=== PATIENT | male | born 1950 | race Caucasian/White ===

== ENCOUNTER 2016-04-11 11:58 | Inpatient (IN) | payer OTHER, MEDICARE ==
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
--- NOTE | ~2016-04-11 | IDS ---
Interim Discharge Summary [facility] [address] [place]. [address] NAME: JOSIAH HAQ : 46 STATUS : ADM IN PAT#: [id number] AGE: 65 ADM/REG DATE : 04/11/16 MR#: [id number] REPORT SERV DATE: 04/16/16 DICTATED BY: AMBROSIO RICKETTS DATE: 04/15/16 REPORT STATUS : Draft TRANSCRIBED BY: MODWolf DATE: 04/15/16 ADMISSION DATE: 04/11/2016 DISCHARGE DATE: DIAGNOSES: 1. Acute on chronic worsening hypoxic respiratory failure. 2. History of MDS, status post bone marrow transplant and history of phmxo-btrvuk-ztyh disease. 3. Hyperkalemia with stage 4 chronic kidney disease. 4. Immunocompromised, on chronic steroid. 5. Acute influenza B, recent. 6. Acute strep infection. 7. History of deep vein thrombosis. ATTENDING: Critical Care, Dr. Stokes, Dr. Conte, and hospitalist Dr. Ricketts. CONSULTANTS: Nephrology, Dr. Amol Gamble and Dr. Lozano. HOSPITAL COURSE: This is a 65-year-old male with a past medical history of high-grade MDS being followed by Dr. Smith, booster pump oiler. Status post history of bone marrow transplant and gyhht-qkcpfq-kaee disease. Also, history of stage 4 CKD, being followed by Dr. Fausto Diaz. Currently, on a clinical trial with Veltassa for hyperkalemia. The patient was recently diagnosed with strep throat and acute influenza infection by his primary care physician, Hannah Conte nurse practitioner as an outpatient several days prior to coming in to [facility] and was prescribed oral antibiotics. The patient presented to [facility] ER with complaint of some generalized weakness and shortness of breath and had a low-grade temp at home of 100.6. He was seen by ER physician, Wade Herrera. While in the ER, the patient was stable. He does use occasional oxygen at home. He was found to have hyperkalemia with a potassium of 6.2, and the patient was admitted for treatment and also was found to have some acute on chronic kidney disease. His Nephrology group was consulted, and the patient was re-swabbed for strep and influenza, and both were positive, but found to have influenza B infection. Infectious Disease specialist was curb-sided concerning the patient, but not full consultation. The question was whether the patient still requires treatment considering his immunocompromised state and a recent history of acute influenza B that was still positive. It was recommended the patient does not require treatment at this time unless the patient develops fevers. Also, the patient is currently out of the range for treatment, but monitor. The patient initially was given some IV fluids upon admission for his acute on chronic kidney disease, approved by Nephrology. However, later throughout the hospital course, the patient's O2 requirement began to increase, although the patient stated he was feeling better. O2 requirement increased from 3 L to 8 L, and the patient was denying shortness of breath. His chest x-rays did not show any acute active infiltrates. He has remained afebrile throughout his hospital course. He was initiated on diuresing by Nephrology group with a good urine output. The patient also was transferred to ICU and seen by Dr. Stokes and Inés for hypoxic respiratory failure. The patient was placed on high- flow oxygen in ICU requiring 12 L of oxygen. The patient has remained alert and oriented x3, and seen by instructional support specialist while in ICU and Nephrology continued to follow. Interim Discharge Summary [address] [address] NAME: JOSIAH HAQ : 46 STATUS : ADM IN [facility]#: [id number] AGE: 65 ADM/REG DATE : 04/11/16 MR#: [id number] REPORT SERV DATE: 04/16/16 DICTATED BY: AMBROSIO RICKETTS DATE: 04/15/16 REPORT STATUS : Draft TRANSCRIBED BY: ANH DATE: 04/15/16 However, while in ICU, the patient threatened to leave AMA and stated he would stay if he was transferred back to a regular bed. Therefore, ICU physicians transferred the patient back to regular bed and now on 7 North cardiac telemetry, on 13 L of oxygen. The patient is hemodynamically stable. Still denying any shortness of breath. Dr. Smith, his booster pump oiler/oncologist has been consulted as of 04/14/2016 due to his history of graft- versus-host disease. Also, I have spoken with Dr. Smith today, who will come and assess his patient and also Pulmonary will be reconsulted to see the patient on the floor. The patient states that this has happened before in the past concerning his O2 requirement. The patient would benefit from a CAT scan of the chest. However, the question is if the patient would be stable enough to lie flat for a CAT scan while on 13 L of oxygen. Therefore, a CAT scan has not been ordered at this time. He has had a repeat chest x-ray and echocardiogram also has been ordered and awaiting Pulmonary consultation and Hematology/Oncology to re-evaluate the patient for snxlo-hazrjq-fzug disease. Mr. Haq would be followed by my colleague starting tomorrow 04/16/2016, who will attend to his care, and will be cared for by the Oncology/Hospitalist team as well. [facility]/MODL brosio Ricketts M.D. / [id number] CC: Ambrosio Ricketts M.D.
--- NOTE | ~2016-04-11 | IDS ---
Interim Discharge Summary [facility] [address] [address] NAME: JOSIAH MEJIA : 46 STATUS : ADM IN PAT#: [id number] AGE: 65 ADM/REG DATE : 04/11/16 MR#: [id number] REPORT SERV DATE: 04/15/16 DICTATED BY: AMBROSIO RICKETTS DATE: 04/15/16 REPORT STATUS : Draft TRANSCRIBED BY: MODL DATE: 04/15/16 ADMISSION DATE: 04/11/2016 DISCHARGE DATE: CONTINUATION: Also please note, the patient is on chronic Eliquis and states he has been compliant with his Eliquis at home and continues on Eliquis here while in the hospital since admission. Therefore, the likely of PE is low. [facility]/ANH brosio Ricketts M.D. / [id number] CC: Ambrosio Ricketts M.D.
--- NOTE | ~2016-04-11 | DS ---
Discharge Summary [facility] [address] [place]. [address] NAME: JOSIAH MEJIA : 46 STATUS : DIS IN PAT#: [id number] AGE: 65 ADM/REG DATE : 04/11/16 MR#: [id number] REPORT SERV DATE: 04/27/16 DICTATED BY: ADIN DENNIS DATE: 04/26/16 REPORT STATUS : Draft TRANSCRIBED BY: MODL DATE: 04/26/16 ADMISSION DATE: 04/11/2016 DISCHARGE DATE: 04/26/2016 CHIEF COMPLAINT ON ADMISSION: Generalized weakness and shortness of breath. DISCHARGING DIAGNOSES: 1. Influenza B. 2. Acute on chronic hypoxic respiratory failure. 3. Strep throat, status post treatment with amoxicillin. 4. Acute kidney injury with hyperkalemia on admission. 5. Nausea, vomiting, and diarrhea preceding admission, which has resolved. 6. History of myelodysplastic syndrome, status post allo bone marrow transplant. 7. History of rpmpq-xtazzv-ysij disease. 8. History of pulmonary embolus and deep vein thrombosis about two months ago, on Eliquis. 9. Positive respiratory cultures from bronchoscopy with Pseudomonas and muco purulence on examination. 10.Hypertension. 11.Chronic steroid use with hyperglycemia. 12.Chronic kidney disease stage 3. 13.Chronic anemia, follows with Oncology for this. HISTORY OF PRESENT ILLNESS: Please see full H and P by Dr. Marge Snow regarding initial presentation. HOSPITAL COURSE: Please see interim summaries by Dr. Snow and Dr. Vasquez regarding initial parts of hospitalization in addition to business travel consultant notes by Dr. Edward from Infectious Disease. In regard from my period taking care of the patient after Dr. Vasquez's interim summary covers up to 04/22/2016, the patient continued to improve. We were able to wean him down to his home 3 L of oxygen. He will get Aranesp for his MDS and anemia per Dr. Smith and he is down to 40 mg of Solu-Medrol daily. He will follow up with Dr. Smith. He will complete an additional three days of Cipro for his positive Pseudomonas on his BAL. This is per Dr. Edward. He will be discharged to home on his normal 3 to 4 L of oxygen. His creatinine is back down to his normal baseline. We will otherwise continue previous home medications. He will follow up with Dr. Smith early next week as previously scheduled. He has been stable on his previous dose of Eliquis without any further issues. He has required very few sliding scale insulin despite higher doses of steroids. PERTINENT IMAGING: Prior to discharge, he had a chest x-ray on 04/23/2016, which showed impression minimal atelectasis or infiltrate at the lung base. DISPOSITION: Will be home with previous home oxygen. FOLLOWUP: Will be with Dr. Smith as an outpatient. Time spent on this discharge including coordination of care and discussion with Infectious Discharge Summary [address] [address] NAME: JOSIAH MEJIA : 46 STATUS : DIS IN PAT#: [id number] AGE: 65 ADM/REG DATE : 04/11/16 MR#: [id number] REPORT SERV DATE: 04/27/16 DICTATED BY: ADIN DENNIS DATE: 04/26/16 REPORT STATUS : Draft TRANSCRIBED BY: MODWolf DATE: 04/26/16 Disease is greater than 30 minutes. DISCHARGE MEDICATIONS: Acyclovir 400 mg daily, Norvasc 10 mg daily, Eliquis 5 mg p.o. b.i.d., vitamin D, dapsone 100 mg in the morning, Colace 200 mg in the morning, Diflucan 100 mg daily, levothyroxine 112 mcg daily, Zyrtec 10 mg daily, methylprednisolone 40 mg daily, Singulair 10 mg daily, Lopressor 25 p.o. b.i.d., triamcinolone cream p.r.n., Flovent two puffs b.i.d., Atarax 25 mg p.o. b.i.d., sodium bicarbonate 1300 mg daily, Veltassa one packet daily, Compazine p.r.n., Ambien 10 mg p.r.n., Ultram 50 mg every six hours p.r.n., Cipro 500 mg p.o. b.i.d. for seven doses. YANELIS/ANH Adin Dennis MD / [id number] CC: Adin Dennis MD
--- NOTE | ~2016-04-11 | OP ---
Record Of Operation [facility] [address] [place]. [address] NAME: JOSIAH MEJIA : 46 STATUS : ADM IN PAT#: [id number] AGE: 65 ADM/REG DATE : 04/11/16 MR#: [id number] REPORT SERV DATE: 04/19/16 DICTATED BY: DONNELL MARTINEZ DATE: 04/19/16 REPORT STATUS : Draft TRANSCRIBED BY: MODL DATE: 04/19/16 DATE OF PROCEDURE: PROCEDURE PERFORMED: Fiberoptic bronchoscopy, bronchoscopy with bronchoalveolar lavage, and transbronchial lung biopsies on two separate lobes. DESCRIPTION OF PROCEDURE: After risks and benefits were explained, informed consent was obtained. The indication for preoperative diagnosis is pneumonitis and to rule out graft- versus-host disease in the setting of previous bone marrow transplant. The patient received anesthesia under care of Anesthesiology with placement of an LMA artificial airway. The patient tolerated the procedure well. Following insertion of the LMA, we advanced the bronchoscope beyond the vocal cords without difficulty, performed topical anesthesia throughout with lidocaine. The entire bronchial tree was inspected. He had thick copious clear secretions which were somewhat serosanguineous throughout even before the biopsies, but no endobronchial lesions. The first order segmental bronchi were clear in all lobes. We performed bronchoalveolar lavage in the right middle lobe and lingula by wedging the bronchoscope in the each lobe instilling saline aspirating into Lukens trap. We then performed seven transbronchial lung biopsies in the right middle lobe and right lower lobe under fluoroscopic guidance with good sampling and no immediate complications. Chest radiograph is pending though there was no obvious pneumothorax on fluoroscopy. IMPRESSION: Acute tracheobronchitis, pneumonitis, previous bone marrow transplant. TELMA/ANH Donnell Martinez M.D. / [id number] CC: Travis Vasquez M.D.
--- NOTE | ~2016-04-11 | IDS ---
Interim Discharge Summary [facility] [address] [place]. [address] NAME: JOSIAH MEJIA : 46 STATUS : ADM IN PAT#: [id number] AGE: 65 ADM/REG DATE : 04/11/16 MR#: [id number] REPORT SERV DATE: 04/22/16 DICTATED BY: DATE: REPORT STATUS : Draft TRANSCRIBED BY: MODL DATE: 04/22/16 ADMISSION DATE: 04/11/2016 DISCHARGE DATE: Covering interim dates of service 04/16/2016 through 04/22/2016. CONSULTANTS: Include Dr. Amol Gamble of Nephrology, Dr. Mala Loving of Pulmonology, Dr. Ayad Alexander of Oncology and Infectious Disease consultation is pending. CURRENT DIAGNOSES: 1. Acute kidney injury/hyperkalemia at admission - resolved. 2. Nausea, vomiting, and diarrhea preceding admission - resolved. 3. Influenza B. Out of the window for treatment with Tamiflu, so he actually was not treated. 4. Sinusitis - diagnosed prior to admission. Status post amoxicillin. 5. Acute strep - status post treatment with amoxicillin. 6. Acute on chronic hypoxemic respiratory failure - presently requiring Vapotherm with pressure 20, FiO2 80%. Suspect due to bilateral Pseudomonas pneumonia versus graft- versus-host disease exacerbation. 7. History of myelodysplastic syndrome - status post Rituxan. 8. History of lchwa-thmzoz-arcc disease. 9. History of pulmonary embolism/deep vein thrombosis diagnosed 2 months ago - on Eliquis. 10.Hypothyroidism. 11.Hypertension. 12.Generalized weakness. 13.Remote history of colon cancer. 14.Steroid induced hyperglycemia. INTERIM IMAGING AND DIAGNOSTICS: Include a portable chest x-ray 04/19/2016, following bronchoscopy shows persistent bibasilar airspace disease likely representing atelectasis. No pneumothorax or significant pleural effusions. PROCEDURES: Bronchoscopy on 04/19/2016 by Bird Martinez, showing multiple mucopurulent pockets. PERTINENT INTERIM LABS: Include bronchoalveolar lavage demonstrating 1500 colonies/mL of Pseudomonas. AFB smear negative with culture in progress for 6 weeks. Current creatinine value is 1.86. White blood cell count today is 25.8, up from 11.4 earlier in the week. Hemoglobin today 8.3, down from 9.6 earlier in the week. Blood glucose values ranging from 110-290 depending on patient's oral intake. Pathology from bronchoalveolar lavage 04/19/2016, negative for malignancy. Abundant mucopurulent debris. BRIEF HISTORY: For full details please see the previously dictated history of present illness by Dr. Marge Snow. This is a 65-year-old white male, with past medical Interim Discharge Summary [place] [address] [place]. [address] NAME: JOSIAH MEJIA : 46 STATUS : ADM IN PAT#: [id number] AGE: 65 ADM/REG DATE : 04/11/16 MR#: [id number] REPORT SERV DATE: 04/22/16 DICTATED BY: DATE: REPORT STATUS : Draft TRANSCRIBED BY: MODL DATE: 04/22/16 history of high-grade myelodysplastic syndrome, for which he has received Rituxan and bone- marrow transplant. The patient was diagnosed with influenza B, and strep throat prior to admission, treated with oral antibiotics but not Tamiflu at that point, because he was felt to be out of the window for treatment. On outpatient antibiotics, the patient developed severe diarrhea, inability to keep down food, fluids and medications, and presented to the emergency department on 04/11/2016 with acute on chronic renal failure and hyperkalemia. The patient was admitted to the Hospitalist Service. HOSPITAL COURSE: For full details, please see interim discharge summaries by Dr. Marge Snow dated 04/15/2016 and 04/16/2016. For the first week of the patient's hospitalization, he was managed for acute kidney injury and hyperkalemia with assistance from the Nephrology Service, and these issues resolved. He was re-swabbed for strep and influenza and was found to be positive for both. The patient was not treated for acute influenza B, because he was felt to be out of the window for treatment. He was placed on amoxicillin for strep and sinusitis. He completed 10 days of this antibiotic. Starting on 04/13/2016, patient's oxygen requirements began to increase, although there was no evidence of acute abnormality on chest imaging or clinically. He briefly required ICU hospitalization for hypoxemic respiratory failure, and was transferred back to the floor on 04/15/2016, on 13 L oxygen by nasal cannula. I assumed care of the patient on 04/16/2016. He had been seen by his oncologist, with a suspicion for exacerbation of eyidl-ekvzko-iidp disease. He had also been seen by Pulmonology Dr. Mala Loving. Recommendation was to increase his steroids. He was placed on Solu-Medrol 60 mg IV q.6 hours, with minimal improvement in his pulmonary status. He was requiring up to 80% of Vapotherm to maintain saturations greater than 90%. Given that he is chronically immunosuppressed with a history of high-grade myelodysplastic syndrome and prior bone marrow transplant, and he has a history of lhapq-ujrqvh-igrt disease, he was set up for a bronchoscopy which occurred on 04/19/2016, after his Eliquis could be held for appropriate duration. He was managed with an unfractionated heparin drip during the enrico-procedure period. He underwent an uneventful bronchoscopy by Dr. Bird Martinez on 04/19/2016, with subsequent BAL fluid culture growing 1500 colonies/mL of Pseudomonas which was loera sensitive. The patient was initiated on cefepime and ciprofloxacin on 04/21/2016, and ID consultation is pending to help determine the ideal in hospital and discharge antibiotic regimen and recommended duration. Oncology has begun tapering the patient's Solu-Medrol as of this morning, and he will now receive 60 mg IV q.12 hours. DISPOSITION: The patient will remain hospitalized until his oxygen requirements are decreased and he is felt appropriate for discharge to home, with home health and home physical therapy. Current pulmonary frailty has limited physical therapy efforts, but the Interim Discharge Summary [address] [place] [address] [facility] [place]. [address] NAME: JOSIAH MEJIA : 46 STATUS : ADM IN [facility]#: [id number] AGE: 65 ADM/REG DATE : 04/11/16 MR#: [id number] REPORT SERV DATE: 04/22/16 DICTATED BY: DATE: REPORT STATUS : Draft TRANSCRIBED BY: MODL DATE: 04/22/16 patient is making good effort to get up to the chair 3 times a day as tolerated, and oxygen will be weaned as tolerated. The patient had an up-trend in his white blood cell count today with some decline in hemoglobin and a repeat CBC is pending for the morning. Also, his blood pressure was elevated this morning in the systolic 150-160 range, and his home amlodipine was restarted. [facility]/ANH Travis Vasquez M.D. / [id number] CC: Argenis Kirk M.D. Bertrand Marquess Anz III, M.D.
--- NOTE | ~2016-04-11 | HP ---
History And Physical [place] [address] [facility] [place]. [address] NAME: JOSIAH MEJIA : 46 STATUS : ADM IN PAT#: [id number] AGE: 65 ADM/REG DATE : 04/11/16 MR#: [id number] REPORT SERV DATE: 04/11/16 DICTATED BY: AMBROSIO RICKETTS DATE: 04/11/16 REPORT STATUS : Draft TRANSCRIBED BY: MODWolf DATE: 04/11/16 DATE OF ADMISSION: 04/11/2016 CHIEF COMPLAINT: Generalized weakness and shortness of breath. HISTORY OF PRESENT ILLNESS: This is a 65-year-old male with a past medical history of high- grade MDS, for which he follows up with hematology/oncologist, Dr. Smith and is status post bone marrow transplant and a history of stage IV CKD, for which the patient follows up with Dr. Fausto Diaz, and is currently on a clinical trial with Veltassa for hyperkalemia. The patient was diagnosed with flu influenza and strep throat by a primary care physician, Hannah Conte, nurse practitioner, and was treated with oral antibiotics. The patient is currently not on Tamiflu, was told that he was out of the window for Tamiflu. He does have a dry cough, however, a couple of days after initiating the antibiotics, the patient developed severe diarrhea. He has no hematochezia, no melena, just only brown stools, low- grade fever of 100.6 while at home, and also the patient states due to his diarrhea, he has not been able to take some of his medications including his thyroid medication for the past week. He presented to [facility] ER, was seen in the ER by Dr. Wade Herrera, and was found to have hyperkalemia with acute on chronic renal failure with potassium of 6.2 and a creatinine has increased from a baseline of around 2.8 to 3.5, and hospitalist was called to admit the patient to the hospital. It was ordered in the ER for the patient to receive an amp of D50 and insulin and calcium gluconate by ER physician. The patient denies any abdominal discomfort, but does state he has some abdominal fullness. He denies any chest pain. REVIEW OF SYSTEMS: Please refer to HPI. 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 PAST SURGICAL HISTORY: Cholecystectomy, skin graft, colon resection, left elbow surgery, and fistula. FAMILY HISTORY: Father with CHF at 86 and mother at 90. SOCIAL HISTORY: Quit tobacco abuse approximately 15 years ago with a known [id number] history. No alcohol or illicit drugs. Lives at home with his . He states he moves slowly at home, but does not use any assistive devices and recently had a fall approximately two weeks ago. ALLERGIES: NO KNOWN ALLERGIES. HOME MEDICATIONS: Acyclovir 400 mg p.o. q.a.m., Norvasc 10 mg p.o. daily, Eliquis 5 mg p.o. b.i.d., Zithromax 250 mg p.o. q.morning, Ceftin 250 mg p.o. b.i.d. for seven days., Zyrte History And Physical [address] [address] NAME: JOSIAH MEJIA : 46 STATUS : ADM IN [facility]#: [id number] AGE: 65 ADM/REG DATE : 04/11/16 MR#: [id number] REPORT SERV DATE: 04/11/16 DICTATED BY: AMBROSIO RICKETTS DATE: 04/11/16 REPORT STATUS : Draft TRANSCRIBED BY: ANH DATE: 04/11/16 10 mg p.o. q.a.m., vitamin D, dapsone 100 mg p.o. q.a.m., Colace 200 mg p.o. q.a.m., fluconazole 100 mg p.o. q.a.m., fluticasone two puffs inhaled b.i.d., Atarax 25 mg p.o. b.i.d., levothyroxine 112 mcg p.o. daily, methylprednisolone 40 mg p.o. q.48 hours, metoprolol tartrate 25 mg p.o. b.i.d., Singulair 10 mg p.o. q.a.m., Compazine 10 mg p.o. q.6 hours p.r.n., sodium bicarb 1950 mg p.o. q.a.m., tramadol 50 mg p.o. q.6 hours p.r.n., triamcinolone topical cream at bedtime, Veltassa one pack p.o. q.afternoon, clinical trial medication, and Ambien 10 mg p.o. at bedtime. PHYSICAL EXAMINATION: VITAL SIGNS: Temp of 98.7, blood pressure 125/80 with a pulse of 80, respiratory rate of 18, and saturating 90% to 92% on room air. GENERAL: The patient is alert and oriented x3, in no distress. Obesity. HEENT: Pupils are equal, round, and reactive to light. Extraocular muscles are intact. Anicteric sclerae. CARDIOVASCULAR: S1 and S2. Regular rate and rhythm. No appreciated rubs or gallops. No JVD. RESPIRATORY: Clear to auscultation bilaterally. No wheezes or crackles. No signs of tachypnea. ABDOMEN: Positive bowel sounds with some abdominal fullness and some pitting edema, for which the patient states all this is chronic and not acute. EXTREMITIES: With 1+ pitting edema bilaterally. Warm lower extremities. NEURO: Cranial nerves 2 through 12 grossly intact. Moves all four extremities. No neuro focal deficits, but with generalized weakness. SKIN: With old scabs on the knees from a history of a recent fall. IMAGING: Chest x-ray with no acute infiltrate. LABORATORY DATA: A pH of 7.34, pCO2 of 36, pO2 of 55 with FiO2 of 21. Sodium 135, potassium 6.2, with a chloride of 101, bicarb of 23, BUN of 52, with a creatinine of 3.56 with a glucose of 98. T bili of 0.5, alkaline phosphatase of 110, ALT of 87, AST of 67. Troponin less than 0.02. BNP of 33.8, white count of 9.2 with a hemoglobin of 11.2, platelet count 188. UA with a specific gravity of 1.015, 30 of protein, negative blood, negative leukocyte esterase, negative nitrites, 1 white blood cell. IMAGING: EKG: Normal sinus rhythm. Q-waves in lead III. No ST elevation. No peaked T- waves. ASSESSMENT AND PLAN: 1. Hyperkalemia. 2. Acute on chronic kidney disease. 3. Diarrhea. 4. Uncontrolled hypothyroidism. 5. Recent right lower extremity deep venous thrombosis. 6. Recent influenza, not on Tamiflu. 7. Recent strep throat. 8. History of myelodysplastic syndrome. History And Physical [address] [place]. [address] NAME: JOSIAH MEJIA : 46 STATUS : ADM IN PAT#: [id number] AGE: 65 ADM/REG DATE : 04/11/16 MR#: [id number] REPORT SERV DATE: 04/11/16 DICTATED BY: AMBROSIO RICKETTS DATE: 04/11/16 REPORT STATUS : Draft TRANSCRIBED BY: ANH DATE: 04/11/16 ASSESSMENT AND PLAN: We will admit, also give IV fluids for rehydration as well as give a stat dose of Kayexalate now, and recheck electrolytes. Also, we will notify Dr. Fausto Diaz in service for the patient's admission with hyperkalemia and currently on a clinical trial drug. Also, we will re-swab for influenza. The patient's stool C difficile, so far, is negative per ER collection. Also, we will recheck the patient's TSH, the patient recently had a TSH in the chart noted to be on the 14th, found to be at 40. Also, we recommend to increase the levothyroxine dose, and we will admit to telemetry and closely monitor. MARCIN/ANH brosio Ricketts M.D. / [id number] CC: Argenis Escalona III, M.D. Nilesh C Patel, M.D.
--- NOTE | ~2016-04-11 | CN ---
Consultation Report [facility] [address] [place]. [address] NAME: JOSIAH MEJIA : 46 STATUS : ADM IN PAT#: [id number] AGE: 65 ADM/REG DATE : 04/11/16 MR#: [id number] REPORT SERV DATE: 04/22/16 DICTATED BY: JOE SÁNCHEZ DATE: 04/22/16 REPORT STATUS : Draft TRANSCRIBED BY: MODL DATE: 04/22/16 INFECTIOUS DISEASE CONSULT DATE OF CONSULTATION: REASON FOR CONSULT: Pseudomonas in BAL culture. 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 He is on chronic steroids along with chronic suppressive antibiotics with acyclovir, fluconazole, and dapsone. He uses oxygen at home, part of the time. About a week prior to this admission, he apparently had symptoms of shortness of breath, dry cough, maybe some congestion. He was seen I presume at the oncology office, and he might have been started on antibiotic. When I asked the patient, he could not really tell but there is a mention in the admission note about Ceftin. Also, he might have been at home on azithromycin. Prior to this admission, he had some "diarrhea" with brown stools and reduce oral intake, maybe nausea. To me, he reported no fever, no sore throat. No chest pain. Upon admission here on 04/11/2016, he had evidence of acute on chronic renal insufficiency with a creatinine of 3.5 with a baseline probably less than 3, potassium is high at 6.2, BUN 52. ABGs on room air showed a PaO2 of 55 and some mild transaminase elevation with normal bilirubin, a WBC of 9, hemoglobin 11, platelets 180. Influenza screen was positive. Strep screen by throat swab was positive. Urinalysis showed just proteins. Blood cultures were negative and stool culture unrevealing. He was started on azithromycin and amoxicillin from what I can tell. At some point, his steroids were increased, and he has been on high doses between the 04/16/[address] scan on 04/15/2016 showed some small areas of atelectasis and/or infiltrates mostly in the bases or lower lobes. A sputum culture was collected on 04/18/2016 and grew just normal fabien. Because he had persistent dyspnea on exertion and dry cough, he had a bronchoscopy on 04/19/2016. The report indicates copious thick clear and serosanguineous secretions. A BAL was done from the right middle lobe and the lingula that on pathology showed "mucopurulent debris." Transbronchial biopsy in the right middle lobe and right lower lobe showed bronchial wall inflammation and minimal parenchymal histologic changes. There was no granuloma, no malignancy. The BAL cell count showed 380 white blood cells, but 49,000 red blood cells. Lymphocytes are 82%. Gram stain had gram-positive rods, but culture grew 1500 colonies of Pseudomonas. AFB smear was negative. Antibiotics were altered with azithromycin being stopped on 04/21/2016 and the amoxicillin Consultation Report [place] [id number] [facility] [place]. [address] NAME: JOSIAH MEJIA : 46 STATUS : ADM IN [facility]#: [id number] AGE: 65 ADM/REG DATE : 04/11/16 MR#: [id number] REPORT SERV DATE: 04/22/16 DICTATED BY: JOE SÁNCHEZ DATE: 04/22/16 REPORT STATUS : Draft TRANSCRIBED BY: ANH DATE: 04/22/16 on the 04/19/2016. Yesterday, he was started on cefepime and Cipro. Echocardiogram was of a poor window and the last chest x-ray was done on 04/19/2016 that showed some bibasilar linear atelectasis. The patient states that he is less short of breath, and he is less weak but Dr. Vasquez, the hospitalist tells me that there is no improvement in his oxygen demands, and he does not seem any stronger. Also, his appetite is not good. He reports that he had no further diarrhea, no skin lesions beside a chronic skin tightness and scarring, no joint swelling. He has occasional sputum on expectoration that is dark, and he feels like he coughs more today than yesterday. He has been afebrile. Blood pressure has been high. Lab work showed some worsening of the white blood cell count from 5,000 to 11,000, now 25,000 with 67% segments, 17% bands, creatinine improved to 1.8. PAST MEDICAL HISTORY: 1. As I mentioned above. From the chart, I understand he received Rituxan in the past. He is on steroids at home. He had a presence of BK virus, I am not sure it was blood or urine in 2013. 2. Chronic kidney disease, and he has actually dialyzed for a year until 2015. He is on a trial of medication for hyperkalemia named Veltassa. 3. He had a history of colon cancer, requiring surgery. 4. History of hypertension, right leg DVT, hypothyroidism, left elbow surgery, cholecystectomy. 5. He had extensive knowles about 60% of his body and a lot of skin grafts. 6. He has a history of varicella. No history of TB or TB contacts. SOCIAL HISTORY: He is , a lot of people who live in his house including children. He has no animals. He has not traveled. [place]. He was in [place] for , quit smoking years ago. MEDICATIONS: On admission include acyclovir, azithromycin, cefuroxime, dapsone, fluconazole, methylprednisolone 40 mg every other day. Other medications included amlodipine, Eliquis, Zyrtec, vitamin D3, docusate, Flovent, Atarax, levothyroxine, metoprolol, Singulair, Compazine as needed, sodium bicarbonate, triamcinolone cream, Veltassa, and Ambien for sleep. PHYSICAL EXAMINATION: GENERAL: On exam, he is awake. He has brown facies. He has a few teeth on the lower jaw. HEENT: I do not see oral ulcers. LUNGS: With coarse decreased sounds throughout. HEART: Regular rhythm. Distant sounds. ABDOMEN: With tight skin, nontender to palpation. EXTREMITIES: Arms with tight skin. No open wounds. SKIN: Legs and feet without open wounds. Consultation Report [address] [place]. [address] NAME: JOSIAH MEJIA : 46 STATUS : ADM IN [facility]#: [id number] AGE: 65 ADM/REG DATE : 04/11/16 MR#: [id number] REPORT SERV DATE: 04/22/16 DICTATED BY: JOE SÁNCHEZ DATE: 04/22/16 REPORT STATUS : Draft TRANSCRIBED BY: ANH DATE: 04/22/16 ASSESSMENT AND PLAN: 1. Positive BAL culture for Pseudomonas in a patient with respiratory failure, who is immunocompromised. 2. Myelodysplastic syndrome status post stem cell transplant remotely, with GVHD. He is on chronic steroids. He received rituximab in the past. 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 According to the chart, he was on suppressive acyclovir, dapsone, and fluconazole. The patient cannot remember all the medications he takes. I saw Ceftin and azithromycin on the medications and admission list. 3. History of chronic kidney disease, hypothyroidism. 4. He had a positive influenza screen in outpatient and again on admission here. 5. He had a positive throat swab screen for Strep but he received amoxicillin and azithromycin here for at least a week plus it sounds like he received Ceftin as outpatient. The significance of the Pseudomonas is quite unclear since the colony count is quite low, the white blood cell count from BAL is quite low as well. The patient states he feels better although his doctor tells me his oxygen requirements have not decreased, and he does not look better. He was started on cefepime and Cipro for the Pseudomonas but I do not think we need both antibiotics, I am going to stop the Cipro. Consider adding Tamiflu since he is immunocompromised and there is some risk of persistent shedding of virus. I would repeat a CT of the chest if he does not show signs of improvement in a couple of days. We will check urine Pneumococcal antigen, urine Legionella antigen, and a BAL for a viral respiratory panel. I discussed with Dr. Vasquez and the patient. PC/MODL Joe Sánchez M.D. / [id number] CC: Travis Vasquez M.D.
[~2016-04-11 11:58] MED LIST: AMB10 PO; ANTIBIOTIC FOR SINUS PO; B12100T PO; CIP2 PO; CLARIT10 PO; COMP10B PO; DAPSONE 100 MG100 MG PO; FLUCON2 PO; K500 PO; KIONEX PO; LEVAQUIN5T PO; LEVOTHYROXIN112 MCG PO; MAGOX4 PO; MEDROL4 PO; MUCINEX600 MG PO; NORV10 PO; OXYCOD PO; PRILO PO; PRIN10 PO; PRIN20 PO; REFRESH TEAR0.5 % OP; RX CREAM TOP; SODBICAR10 PO; SYN1 PO; SYN112 PO; TOPXL25 PO; TOPXL50 PO; TRIAMCINOLON0.5 % EX; TRIAMCINOLONE C80 GM TOP; TYLENOL PO; ULTRAM50 PO; ZOFRAN8 PO; ZOVI800 PO; ZOVIRAX400 MG PO; [UNRECOGNIZED DRUG - REMARK] SC
[2016-04-11 12:16] LABS: ER CBC TAT 0 Hrs 09 Mins; HEMATOCRIT 35.9 % (40.0-51.0); HEMOGLOBIN 11.2 g/dL (13.6-17.8); MANUAL DIFF YES %; MEAN CORPUS HGB CONC 31.2 g/dL (32.0-36.0); MEAN CORPUSCULAR HEMOGLOB 29.9 pg (26.0-34.0); MEAN CORPUSCULAR VOLUME 95.7 fL (80-100); MEAN PLATELET VOLUME 9.6 fL (9.2-13.0); PLATELET COUNT 188 10/3/uL (150-400); RBC DISTRIBUTION WIDTH 15.8 % (12.0-16.0); RED CELL COUNT 3.75 10/6/uL (4.7-6.1); WHITE BLOOD CELLS 9.2 10/3/uL (4.5-10.5)
[2016-04-11 12:20] LABS: ALLENS TEST Pos; HCO3 (ACTUAL BICARBONATE) 19.1 MEQ/L (23-27); HEMOBLOGIN CONTENT 11.1 G/DL (14-18); INSTRUMENT SERIAL # 8087; METHEMOGLOBIN 0.3 % (0-3); O2 CONTENT 13.2 VOL% (18-24); PCO2 (CO2 TENSION) 36 MMHG (35-45); PO2 (O2 TENSION) 55 MMHG (79-93); SAMPLE Arterial; pH 7.34 (7.37-7.43)
[2016-04-11 12:35] LABS: ALKALINE PHOSPHATASE 110 U/L (45-117); CALCIUM, SERUM 8.7 MG/DL (8.5-10.4); CHLORIDE, SERUM 101 MMOL/L (96-112); CO2 (CARBON DIOXIDE) 23 MMOL/L (24-34); GLUCOSE, SERUM 98 MG/DL (60-99); SGOT(AST) 67 U/L (5-40); SGPT(ALT) 87 U/L (5-65); SODIUM, SERUM 135 MMOL/L (135-148); TOTAL BILIRUBIN 0.5 MG/DL (0-1.2); TOTAL PROTEIN 6.1 G/DL (6.0-8.5); TROPONIN I <0.02 NG/ML (<0.05)
[2016-04-11 12:36] LABS: BUN (BLOOD UREA NITROGEN) 52 MG/DL (6-23); CREATININE 3.56 MG/DL (0.70-1.30); GFR AFRICAN AMERICAN 19 ML/MIN (>=60); GFR NON AFRICAN AMERICAN 17 ML/MIN (>=60); GLOBULIN 3.1 G/DL (2.5-4.1)
[2016-04-11 12:37] LABS: POTASSIUM, SERUM 6.2 MMOL/L (3.5-5.3)
[2016-04-11 12:58] LABS: ER DIFF TAT 0 Hrs 51 Mins; SEGMENTED NEUTROPHIL (0) 60 %; TOTAL NUCLEATED CELLS 100
[2016-04-11 12:59] LABS: BAND NEUTROPHILS 12 %; LYMPHOCYTES 22 %; LYMPHOCYTES ABSOLUTE (CALC) 2.02 10/3/uL (0.67-4.30); MONOCYTES 6 %; MONOCYTES ABSOLUTE (CALC) 0.55 10/3/uL (0.21-1.20); NEUTROPHILS ABSOLUTE (CALC) 6.62 10/3/uL (2.02-8.40); PLATELET ESTIMATE ADQ (ADEQUATE); RBC MORPHOLOGY NORM (NORMAL)
[2016-04-11] MEDS ORDERED: ELIQUIS 5 MG TAB5 MG PO (14:01)
[2016-04-11] MEDS ORDERED: DSS PO (14:01)
[2016-04-11] MEDS ORDERED: FLOVENT220 INH (14:01)
[2016-04-11] MEDS ORDERED: SYN112 PO (14:02)
[2016-04-11] MEDS ORDERED: SINGULAIR1 PO (14:02)
[2016-04-11] MEDS ORDERED: TRIAMCINOLONE C80 GM TOP (14:04)
[2016-04-11] MEDS ORDERED: PATIROMER PO (14:05)
[2016-04-11] MEDS ORDERED: LOP25 PO (14:05)
[2016-04-11] MEDS ORDERED: SODBICAR10 PO (14:05)
[2016-04-11] MEDS ORDERED: ZYRTEC ALLGY10 MG PO (14:06)
[2016-04-11] MEDS ORDERED: NORV10 PO (14:06)
[2016-04-11] MEDS ORDERED: ULTRAM50 PO (14:07)
[2016-04-11] MEDS ORDERED: MEDROL8 MG PO (14:07)
[2016-04-11] MEDS ORDERED: AMB10 PO (14:07)
[2016-04-11] MEDS ORDERED: COMP10B PO (14:07)
[2016-04-11] MEDS ORDERED: VITAMIN D31000 UNIT PO (14:08)
[2016-04-11] MEDS ORDERED: FLUCON1 PO (14:08)
[2016-04-11] MEDS ORDERED: AT25 PO (14:08)
[2016-04-11] MEDS ORDERED: ZOVIRAX400 MG PO (14:09)
[2016-04-11] MEDS ORDERED: DAPSONE 100 MG100 MG PO (14:09)
[2016-04-11] MEDS ORDERED: ZITH250 PO (14:09)
[2016-04-11] MEDS ORDERED: CEFT2 PO (14:17)
[2016-04-11 14:46] LABS: ASCORBIC ACID (UR NOT ORDER) NEG (NEG); BILIRUBIN, URINE NEGATIVE (NEG); ER URINALYSIS TAT 0 Hrs 12 Mins; KETONE, URINE NEGATIVE (NEG); LEUKOCYTE ESTERASE(NOT OR NEG (NEG); NITRITE (URINE) NEG (NEG); WBC (NOT ORDERED) (RFLEX) 1 (0-5)
[2016-04-11 18:19] LABS: BUN (BLOOD UREA NITROGEN) 51 MG/DL (6-23); CALCIUM, SERUM 9.7 MG/DL (8.5-10.4); CHLORIDE, SERUM 102 MMOL/L (96-112); CO2 (CARBON DIOXIDE) 19 MMOL/L (24-34); CREATININE 3.42 MG/DL (0.70-1.30); GFR AFRICAN AMERICAN 20 ML/MIN (>=60); GFR NON AFRICAN AMERICAN 18 ML/MIN (>=60); GLUCOSE, SERUM 95 MG/DL (60-99); POTASSIUM, SERUM 5.9 MMOL/L (3.5-5.3); SODIUM, SERUM 136 MMOL/L (135-148)
[2016-04-11 21:12] LABS: INFLUENZA A SCREEN NEGATIVE (NEGATIVE)
[2016-04-11 21:14] LABS: INFLUENZA B SCREEN POSITIVE (NEGATIVE)
[2016-04-11 21:42] LABS: BUN (BLOOD UREA NITROGEN) 51 MG/DL (6-23); CALCIUM, SERUM 9.1 MG/DL (8.5-10.4); CHLORIDE, SERUM 101 MMOL/L (96-112); CREATININE 3.53 MG/DL (0.70-1.30); GFR AFRICAN AMERICAN 20 ML/MIN (>=60); GFR NON AFRICAN AMERICAN 17 ML/MIN (>=60); GLUCOSE, SERUM 111 MG/DL (60-99); POTASSIUM, SERUM 5.1 MMOL/L (3.5-5.3); SODIUM, SERUM 138 MMOL/L (135-148)
[2016-04-11 21:43] LABS: CO2 (CARBON DIOXIDE) 23 MMOL/L (24-34)
[2016-04-12 01:12] LABS: BASOPHILS 0.5 %; BASOPHILS ABSOLUTE 0.05 10/3/uL (0.0-0.16); EOSINOPHILS 0 %; HEMATOCRIT 36.4 % (40.0-51.0); HEMOGLOBIN 11.5 g/dL (13.6-17.8); IMMATURE GRANULOCYTES 0.6 %; IMMATURE GRANULOCYTES ABSOLUTE 0.06 10/3/uL (0.0-0.11); LYMPHOCYTES 30.1 %; LYMPHOCYTES ABSOLUTE 3.18 10/3/uL (0.67-4.30); MEAN CORPUS HGB CONC 31.6 g/dL (32.0-36.0); MEAN CORPUSCULAR HEMOGLOB 29.8 pg (26.0-34.0); MEAN CORPUSCULAR VOLUME 94.3 fL (80-100); MEAN PLATELET VOLUME 9.3 fL (9.2-13.0); MONOCYTES 8.9 %; MONOCYTES ABSOLUTE 0.94 10/3/uL (0.21-1.20); NEUTROPHILS 59.9 %; NEUTROPHILS ABSOLUTE 6.34 10/3/uL (2.02-8.40); PLATELET COUNT 185 10/3/uL (150-400); RBC DISTRIBUTION WIDTH 15.2 % (12.0-16.0); RED CELL COUNT 3.86 10/6/uL (4.7-6.1); WHITE BLOOD CELLS 10.6 10/3/uL (4.5-10.5)
[2016-04-12 01:14] LABS: MANUAL DIFF NO %
[2016-04-12 01:33] LABS: BUN (BLOOD UREA NITROGEN) 48 MG/DL (6-23); CALCIUM, SERUM 8.5 MG/DL (8.5-10.4); CHLORIDE, SERUM 103 MMOL/L (96-112); CO2 (CARBON DIOXIDE) 23 MMOL/L (24-34); CREATININE 3.15 MG/DL (0.70-1.30); GFR AFRICAN AMERICAN 22 ML/MIN (>=60); GFR NON AFRICAN AMERICAN 19 ML/MIN (>=60); GLUCOSE, SERUM 93 MG/DL (60-99); POTASSIUM, SERUM 4.5 MMOL/L (3.5-5.3); SODIUM, SERUM 138 MMOL/L (135-148)
[2016-04-13 06:51] LABS: ALBUMIN 2.5 G/DL (3.5-5.0); BUN (BLOOD UREA NITROGEN) 31 MG/DL (6-23); CALCIUM, SERUM 7.8 MG/DL (8.5-10.4); CHLORIDE, SERUM 105 MMOL/L (96-112); CO2 (CARBON DIOXIDE) 20 MMOL/L (24-34); CREATININE 2.43 MG/DL (0.70-1.30); GFR AFRICAN AMERICAN 31 ML/MIN (>=60); GFR NON AFRICAN AMERICAN 27 ML/MIN (>=60); GLUCOSE, SERUM 66 MG/DL (60-99); PHOSPHORUS, SERUM 2.6 MG/DL (2.5-4.5); POTASSIUM, SERUM 4.1 MMOL/L (3.5-5.3); SODIUM, SERUM 138 MMOL/L (135-148)
[2016-04-13 07:49] LABS: BASOPHILS 0.2 %; BASOPHILS ABSOLUTE 0.01 10/3/uL (0.0-0.16); EOSINOPHILS 0 %; HEMOGLOBIN 9.9 g/dL (13.6-17.8); IMMATURE GRANULOCYTES 0.2 %; IMMATURE GRANULOCYTES ABSOLUTE 0.01 10/3/uL (0.0-0.11); LYMPHOCYTES 43.7 %; LYMPHOCYTES ABSOLUTE 2.65 10/3/uL (0.67-4.30); MEAN CORPUS HGB CONC 31.6 g/dL (32.0-36.0); MEAN CORPUSCULAR HEMOGLOB 29.1 pg (26.0-34.0); MEAN CORPUSCULAR VOLUME 92.1 fL (80-100); MEAN PLATELET VOLUME 9.6 fL (9.2-13.0); MONOCYTES 6.8 %; MONOCYTES ABSOLUTE 0.41 10/3/uL (0.21-1.20); NEUTROPHILS 49.1 %; NEUTROPHILS ABSOLUTE 2.99 10/3/uL (2.02-8.40); NUCLEATED RED BLOOD CELLS 0.4 /100WBC (0-0); PLATELET COUNT 178 10/3/uL (150-400); RBC DISTRIBUTION WIDTH 15.9 % (12.0-16.0)
[2016-04-13 07:50] LABS: HEMATOCRIT 31.3 % (40.0-51.0); MANUAL DIFF NO %; WHITE BLOOD CELLS 6.1 10/3/uL (4.5-10.5)
[2016-04-13 16:45] LABS: ALLENS TEST Pos; BE (BASE EXCESS) -2.4 MEQ/L (0 +/- 2.5); CARBOXYHEMOGLOBIN 0.3 % (0-3); HCO3 (ACTUAL BICARBONATE) 21.5 MEQ/L (23-27); HEMOBLOGIN CONTENT 10.8 G/DL (14-18); INSTRUMENT SERIAL # 8083; METHEMOGLOBIN 1.4 % (0-3); O2 CONTENT 13.2 VOL% (18-24); PCO2 (CO2 TENSION) 34 MMHG (35-45); PO2 (O2 TENSION) 60 MMHG (79-93); SAMPLE Arterial; pH 7.42 (7.37-7.43)
[2016-04-14 04:28] LABS: INSTRUMENT SERIAL # 8083; PCO2 (CO2 TENSION) 38 MMHG (35-45); PO2 (O2 TENSION) 81 MMHG (79-93); pH 7.37 (7.37-7.43)
[2016-04-14 04:29] LABS: ALLENS TEST Pos; BE (BASE EXCESS) -3.1 MEQ/L (0 +/- 2.5); CARBOXYHEMOGLOBIN 0.3 % (0-3); DEVICE HFNC; HCO3 (ACTUAL BICARBONATE) 21.7 MEQ/L (23-27); HEMOBLOGIN CONTENT 11.4 G/DL (14-18); METHEMOGLOBIN 0.5 % (0-3); O2 CONTENT 14.9 VOL% (18-24); OPERATOR ID 17370; SAMPLE Arterial
[2016-04-14 04:46] LABS: HEMOGLOBIN 11.2 g/dL (13.6-17.8); MEAN CORPUS HGB CONC 32.3 g/dL (32.0-36.0); MEAN CORPUSCULAR HEMOGLOB 30.1 pg (26.0-34.0); MEAN CORPUSCULAR VOLUME 93.3 fL (80-100); MEAN PLATELET VOLUME 9.6 fL (9.2-13.0); PLATELET COUNT 180 10/3/uL (150-400); RBC DISTRIBUTION WIDTH 15.2 % (12.0-16.0); RED CELL COUNT 3.72 10/6/uL (4.7-6.1)
[2016-04-14 04:47] LABS: HEMATOCRIT 34.7 % (40.0-51.0); MANUAL DIFF YES %
[2016-04-14 04:55] LABS: ALBUMIN 2.6 G/DL (3.5-5.0); BUN (BLOOD UREA NITROGEN) 33 MG/DL (6-23); CALCIUM, SERUM 8.2 MG/DL (8.5-10.4); CHLORIDE, SERUM 101 MMOL/L (96-112); CO2 (CARBON DIOXIDE) 23 MMOL/L (24-34); CREATININE 2.77 MG/DL (0.70-1.30); GFR AFRICAN AMERICAN 26 ML/MIN (>=60); GFR NON AFRICAN AMERICAN 23 ML/MIN (>=60); GLUCOSE, SERUM 178 MG/DL (60-99); PHOSPHORUS, SERUM 3.5 MG/DL (2.5-4.5); POTASSIUM, SERUM 4.2 MMOL/L (3.5-5.3); SODIUM, SERUM 138 MMOL/L (135-148)
[2016-04-14 06:54] LABS: BAND NEUTROPHILS 9 %; LYMPHOCYTES 16 %; LYMPHOCYTES ABSOLUTE (CALC) 0.96 10/3/uL (0.67-4.30); MONOCYTES 5 %; NEUTROPHILS ABSOLUTE (CALC) 4.74 10/3/uL (2.02-8.40); PLATELET ESTIMATE ADQ (ADEQUATE); SEGMENTED NEUTROPHIL (0) 70 %; TEARDROP SHAPED RBCS OCC (0-2/OIF); TOTAL NUCLEATED CELLS 100
[2016-04-14 06:55] LABS: BURR CELLS 1+ (3-10/OIF) (0-2/OIF); HELMET CELLS OCC (0-2/OIF)
[2016-04-15 04:39] LABS: BASOPHILS 0.2 %; BASOPHILS ABSOLUTE 0.01 10/3/uL (0.0-0.16); EOSINOPHILS 0 %; HEMATOCRIT 34.1 % (40.0-51.0); HEMOGLOBIN 10.5 g/dL (13.6-17.8); IMMATURE GRANULOCYTES 0.6 %; IMMATURE GRANULOCYTES ABSOLUTE 0.04 10/3/uL (0.0-0.11); LYMPHOCYTES 21.6 %; LYMPHOCYTES ABSOLUTE 1.37 10/3/uL (0.67-4.30); MEAN CORPUS HGB CONC 30.8 g/dL (32.0-36.0); MEAN CORPUSCULAR HEMOGLOB 28.2 pg (26.0-34.0); MEAN CORPUSCULAR VOLUME 91.4 fL (80-100); MEAN PLATELET VOLUME 9.6 fL (9.2-13.0); MONOCYTES 5.4 %; MONOCYTES ABSOLUTE 0.34 10/3/uL (0.21-1.20); NEUTROPHILS 72.2 %; NEUTROPHILS ABSOLUTE 4.59 10/3/uL (2.02-8.40); PLATELET COUNT 218 10/3/uL (150-400); RBC DISTRIBUTION WIDTH 15.6 % (12.0-16.0); RED CELL COUNT 3.73 10/6/uL (4.7-6.1); WHITE BLOOD CELLS 6.4 10/3/uL (4.5-10.5)
[2016-04-15 04:40] LABS: MANUAL DIFF NO %
[2016-04-15 04:54] LABS: CHLORIDE, SERUM 101 MMOL/L (96-112); CO2 (CARBON DIOXIDE) 26 MMOL/L (24-34); CREATININE 2.71 MG/DL (0.70-1.30); GFR AFRICAN AMERICAN 27 ML/MIN (>=60); GFR NON AFRICAN AMERICAN 23 ML/MIN (>=60); PHOSPHORUS, SERUM 3.6 MG/DL (2.5-4.5); POTASSIUM, SERUM 4.2 MMOL/L (3.5-5.3); SODIUM, SERUM 138 MMOL/L (135-148)
[2016-04-15 04:57] LABS: BUN (BLOOD UREA NITROGEN) 39 MG/DL (6-23); GLUCOSE, SERUM 93 MG/DL (60-99)
[2016-04-16 04:06] LABS: HEMOGLOBIN 10.7 g/dL (13.6-17.8); MEAN CORPUS HGB CONC 31.5 g/dL (32.0-36.0); MEAN CORPUSCULAR HEMOGLOB 29.2 pg (26.0-34.0); MEAN CORPUSCULAR VOLUME 92.9 fL (80-100); MEAN PLATELET VOLUME 10.3 fL (9.2-13.0); PLATELET COUNT 244 10/3/uL (150-400); RBC DISTRIBUTION WIDTH 15.4 % (12.0-16.0); RED CELL COUNT 3.66 10/6/uL (4.7-6.1); WHITE BLOOD CELLS 5.1 10/3/uL (4.5-10.5)
[2016-04-16 04:07] LABS: MANUAL DIFF YES %
[2016-04-16 04:21] LABS: ALBUMIN 2.6 G/DL (3.5-5.0); BUN (BLOOD UREA NITROGEN) 38 MG/DL (6-23); CHLORIDE, SERUM 100 MMOL/L (96-112); CO2 (CARBON DIOXIDE) 26 MMOL/L (24-34); CREATININE 2.55 MG/DL (0.70-1.30); GFR AFRICAN AMERICAN 29 ML/MIN (>=60); GFR NON AFRICAN AMERICAN 25 ML/MIN (>=60); SODIUM, SERUM 138 MMOL/L (135-148)
[2016-04-16 04:32] LABS: BAND NEUTROPHILS 2 %; IMMATURE GRANS ABSOLUTE (CALC) 0.05 10/3/uL (0.0-0.11); LYMPHOCYTES 21 %; LYMPHOCYTES ABSOLUTE (CALC) 1.07 10/3/uL (0.67-4.30); METAMYELOCYTES 1 %; MONOCYTES 9 %; MONOCYTES ABSOLUTE (CALC) 0.46 10/3/uL (0.21-1.20); NEUTROPHILS ABSOLUTE (CALC) 3.52 10/3/uL (2.02-8.40); PLATELET ESTIMATE ADQ (ADEQUATE); SEGMENTED NEUTROPHIL (0) 67 %; TEARDROP SHAPED RBCS FEW (3-10/OIF); TOTAL NUCLEATED CELLS 100
[2016-04-16 04:32] LABS: GLUCOSE, SERUM 176 MG/DL (60-99); PHOSPHORUS, SERUM 2.5 MG/DL (2.5-4.5)
[2016-04-16 05:10] LABS: SED RATE 77 MM/HR (0-15)
[2016-04-17 06:22] LABS: BASOPHILS 0.2 %; BASOPHILS ABSOLUTE 0.01 10/3/uL (0.0-0.16); EOSINOPHILS 0 %; HEMATOCRIT 30.9 % (40.0-51.0); HEMOGLOBIN 9.7 g/dL (13.6-17.8); IMMATURE GRANULOCYTES ABSOLUTE 0.04 10/3/uL (0.0-0.11); LYMPHOCYTES 20.9 %; LYMPHOCYTES ABSOLUTE 0.87 10/3/uL (0.67-4.30); MANUAL DIFF NO %; MEAN CORPUS HGB CONC 31.4 g/dL (32.0-36.0); MEAN CORPUSCULAR HEMOGLOB 29.1 pg (26.0-34.0); MEAN CORPUSCULAR VOLUME 92.8 fL (80-100); MEAN PLATELET VOLUME 10.1 fL (9.2-13.0); MONOCYTES ABSOLUTE 0.25 10/3/uL (0.21-1.20); NEUTROPHILS 71.9 %; NEUTROPHILS ABSOLUTE 2.99 10/3/uL (2.02-8.40); PLATELET COUNT 257 10/3/uL (150-400); RBC DISTRIBUTION WIDTH 15.3 % (12.0-16.0); RED CELL COUNT 3.33 10/6/uL (4.7-6.1); WHITE BLOOD CELLS 4.2 10/3/uL (4.5-10.5)
[2016-04-17 06:55] LABS: A/G RATIO 0.6 (0.7-1.9); ALBUMIN 2.3 G/DL (3.5-5.0); ALKALINE PHOSPHATASE 109 U/L (45-117); CHLORIDE, SERUM 100 MMOL/L (96-112); CREATININE 2.41 MG/DL (0.70-1.30); GFR AFRICAN AMERICAN 31 ML/MIN (>=60); GFR NON AFRICAN AMERICAN 27 ML/MIN (>=60); GLUCOSE, SERUM 163 MG/DL (60-99); POTASSIUM, SERUM 4.4 MMOL/L (3.5-5.3); SGOT(AST) 69 U/L (5-40); SGPT(ALT) 78 U/L (5-65); SODIUM, SERUM 136 MMOL/L (135-148); TOTAL BILIRUBIN 0.5 MG/DL (0-1.2); TOTAL PROTEIN 6.1 G/DL (6.0-8.5)
[2016-04-17 07:00] LABS: BUN (BLOOD UREA NITROGEN) 43 MG/DL (6-23); CO2 (CARBON DIOXIDE) 21 MMOL/L (24-34); GLOBULIN 3.8 G/DL (2.5-4.1)
[2016-04-18 10:53] LABS: ALBUMIN 2.4 G/DL (3.5-5.0); BUN (BLOOD UREA NITROGEN) 47 MG/DL (6-23); CHLORIDE, SERUM 97 MMOL/L (96-112); CO2 (CARBON DIOXIDE) 23 MMOL/L (24-34); CREATININE 2.35 MG/DL (0.70-1.30); GFR AFRICAN AMERICAN 32 ML/MIN (>=60); GFR NON AFRICAN AMERICAN 28 ML/MIN (>=60); GLUCOSE, SERUM 166 MG/DL (60-99); POTASSIUM, SERUM 3.5 MMOL/L (3.5-5.3); SODIUM, SERUM 133 MMOL/L (135-148)
[2016-04-19 04:16] LABS: PARTIAL THROMBO TIME 35.1 SEC (22.5-37.2); PROTIME (NOT ORD) 13.4 SEC (12.0-14.5)
[2016-04-19 04:19] LABS: HEMATOCRIT 29.9 % (40.0-51.0); HEMOGLOBIN 9.6 g/dL (13.6-17.8); MANUAL DIFF YES %; MEAN CORPUS HGB CONC 32.1 g/dL (32.0-36.0); MEAN CORPUSCULAR HEMOGLOB 28.9 pg (26.0-34.0); MEAN CORPUSCULAR VOLUME 90.1 fL (80-100); MEAN PLATELET VOLUME 10.2 fL (9.2-13.0); NUCLEATED RED BLOOD CELLS 0.8 /100WBC (0-0); PLATELET COUNT 327 10/3/uL (150-400); RBC DISTRIBUTION WIDTH 14.9 % (12.0-16.0); RED CELL COUNT 3.32 10/6/uL (4.7-6.1); WHITE BLOOD CELLS 5.5 10/3/uL (4.5-10.5)
[2016-04-19 05:54] LABS: BAND NEUTROPHILS 3 %; ELLIPTOCYTES 1+ (3-10/OIF) (0-2/OIF); HELMET CELLS OCC (0-2/OIF); IMMATURE GRANS ABSOLUTE (CALC) 0.06 10/3/uL (0.0-0.11); LYMPHOCYTES 24 %; LYMPHOCYTES ABSOLUTE (CALC) 1.32 10/3/uL (0.67-4.30); METAMYELOCYTES 1 %; MONOCYTES 11 %; MONOCYTES ABSOLUTE (CALC) 0.61 10/3/uL (0.21-1.20); NEUTROPHILS ABSOLUTE (CALC) 3.52 10/3/uL (2.02-8.40); SEGMENTED NEUTROPHIL (0) 61 %; TEARDROP SHAPED RBCS FEW (3-10/OIF); TOTAL NUCLEATED CELLS 100
[2016-04-19 05:55] LABS: PLATELET ESTIMATE ADQ (ADEQUATE); TOXIC GRANULATION SLT
[2016-04-19 08:28] LABS: ALBUMIN 2.3 G/DL (3.5-5.0); BUN (BLOOD UREA NITROGEN) 48 MG/DL (6-23); CALCIUM, SERUM 9.3 MG/DL (8.5-10.4); CHLORIDE, SERUM 100 MMOL/L (96-112); CO2 (CARBON DIOXIDE) 24 MMOL/L (24-34); CREATININE 2.27 MG/DL (0.70-1.30); GFR AFRICAN AMERICAN 33 ML/MIN (>=60); GFR NON AFRICAN AMERICAN 29 ML/MIN (>=60); GLUCOSE, SERUM 151 MG/DL (60-99); POTASSIUM, SERUM 3.6 MMOL/L (3.5-5.3); SODIUM, SERUM 138 MMOL/L (135-148)
[2016-04-19 12:14] LABS: BD FL LYMPH (NOT ORD) 82 %; BD FL SOURCE (NOT ORD) BAL; BF BASO (NOT OF) 0 %; BF LARGE MONONUCLEAR 4 %; BF TOTAL CELL CT (NOT ORD 383 /MM3; BODY FLUID EOS (NOT ORD) 0 %; BODY FLUID RBC (NOT ORD) 49000 /MM3; BODY FLUID SEG (NOT ORD) 14 %
[2016-04-20 05:59] LABS: ALBUMIN 2.3 G/DL (3.5-5.0); CALCIUM, SERUM 8.8 MG/DL (8.5-10.4); CHLORIDE, SERUM 102 MMOL/L (96-112); CO2 (CARBON DIOXIDE) 24 MMOL/L (24-34); CREATININE 2.47 MG/DL (0.70-1.30); GFR AFRICAN AMERICAN 30 ML/MIN (>=60); GFR NON AFRICAN AMERICAN 26 ML/MIN (>=60); GLUCOSE, SERUM 148 MG/DL (60-99); PHOSPHORUS, SERUM 2.6 MG/DL (2.5-4.5); SODIUM, SERUM 138 MMOL/L (135-148)
[2016-04-20 06:01] LABS: BUN (BLOOD UREA NITROGEN) 56 MG/DL (6-23)
[2016-04-21 05:16] LABS: MEAN CORPUSCULAR VOLUME 90.1 fL (80-100); MEAN PLATELET VOLUME 10.2 fL (9.2-13.0); NUCLEATED RED BLOOD CELLS 1.9 /100WBC (0-0); PLATELET COUNT 352 10/3/uL (150-400); RBC DISTRIBUTION WIDTH 15.5 % (12.0-16.0); RED CELL COUNT 3.22 10/6/uL (4.7-6.1)
[2016-04-21 05:17] LABS: MANUAL DIFF YES %; WHITE BLOOD CELLS 11.4 10/3/uL (4.5-10.5)
[2016-04-21 05:29] LABS: CALCIUM, SERUM 8.9 MG/DL (8.5-10.4); CHLORIDE, SERUM 100 MMOL/L (96-112); CO2 (CARBON DIOXIDE) 24 MMOL/L (24-34); CREATININE 2.18 MG/DL (0.70-1.30); GFR AFRICAN AMERICAN 35 ML/MIN (>=60); GFR NON AFRICAN AMERICAN 30 ML/MIN (>=60); GLUCOSE, SERUM 156 MG/DL (60-99); POTASSIUM, SERUM 3.6 MMOL/L (3.5-5.3); SODIUM, SERUM 136 MMOL/L (135-148)
[2016-04-21 05:33] LABS: BUN (BLOOD UREA NITROGEN) 60 MG/DL (6-23)
[2016-04-21 05:43] LABS: BAND NEUTROPHILS 8 %; IMMATURE GRANS ABSOLUTE (CALC) 0.46 10/3/uL (0.0-0.11); LYMPHOCYTES 13 %; LYMPHOCYTES ABSOLUTE (CALC) 1.48 10/3/uL (0.67-4.30); METAMYELOCYTES 4 %; MONOCYTES 4 %; MONOCYTES ABSOLUTE (CALC) 0.46 10/3/uL (0.21-1.20); NEUTROPHILS ABSOLUTE (CALC) 9.01 10/3/uL (2.02-8.40); PLATELET ESTIMATE ADQ (ADEQUATE); POLYCHROMASIA 1+ (2-5/OIF) (0-1/OIF); SEGMENTED NEUTROPHIL (0) 71 %; TOTAL NUCLEATED CELLS 100; TOXIC GRANULATION 1+
[2016-04-22 04:31] LABS: BASOPHILS 0.2 %; BASOPHILS ABSOLUTE 0.05 10/3/uL (0.0-0.16); EOSINOPHILS 0 %; HEMATOCRIT 26.2 % (40.0-51.0); HEMOGLOBIN 8.3 g/dL (13.6-17.8); IMMATURE GRANULOCYTES 3.7 %; IMMATURE GRANULOCYTES ABSOLUTE 0.96 10/3/uL (0.0-0.11); LYMPHOCYTES 7.1 %; LYMPHOCYTES ABSOLUTE 1.84 10/3/uL (0.67-4.30); MEAN CORPUS HGB CONC 31.7 g/dL (32.0-36.0); MEAN CORPUSCULAR HEMOGLOB 28.7 pg (26.0-34.0); MEAN CORPUSCULAR VOLUME 90.7 fL (80-100); MEAN PLATELET VOLUME 10.4 fL (9.2-13.0); MONOCYTES 4.8 %; MONOCYTES ABSOLUTE 1.23 10/3/uL (0.21-1.20); NEUTROPHILS 84.2 %; NEUTROPHILS ABSOLUTE 21.74 10/3/uL (2.02-8.40); PLATELET COUNT 271 10/3/uL (150-400); RBC DISTRIBUTION WIDTH 15.5 % (12.0-16.0); RED CELL COUNT 2.89 10/6/uL (4.7-6.1)
[2016-04-22 04:32] LABS: WHITE BLOOD CELLS 25.8 10/3/uL (4.5-10.5)
[2016-04-22 04:33] LABS: MANUAL DIFF NO %
[2016-04-22 04:47] LABS: BUN (BLOOD UREA NITROGEN) 52 MG/DL (6-23); CHLORIDE, SERUM 100 MMOL/L (96-112); CO2 (CARBON DIOXIDE) 26 MMOL/L (24-34); CREATININE 1.86 MG/DL (0.70-1.30); GFR AFRICAN AMERICAN 42 ML/MIN (>=60); GFR NON AFRICAN AMERICAN 37 ML/MIN (>=60); GLUCOSE, SERUM 188 MG/DL (60-99); POTASSIUM, SERUM 3.9 MMOL/L (3.5-5.3); SODIUM, SERUM 136 MMOL/L (135-148)
[2016-04-22 04:58] LABS: BAND NEUTROPHILS 17 %; IMMATURE GRANS ABSOLUTE (CALC) 0.52 10/3/uL (0.0-0.11); LYMPHOCYTES 9 %; LYMPHOCYTES ABSOLUTE (CALC) 2.32 10/3/uL (0.67-4.30); METAMYELOCYTES 2 %; MONOCYTES 5 %; MONOCYTES ABSOLUTE (CALC) 1.29 10/3/uL (0.21-1.20); NEUTROPHILS ABSOLUTE (CALC) 21.67 10/3/uL (2.02-8.40); OVALOCYTES 1+ (3-10/OIF) (0-2/OIF); PLATELET ESTIMATE ADQ (ADEQUATE); POIKILOCYTOSIS 1+ (5-10/OIF) (0-5/OIF); RBC MORPHOLOGY ABN (NORMAL); SCHISTOCYTES FEW (3-10/OIF); SEGMENTED NEUTROPHIL (0) 67 %; TOTAL NUCLEATED CELLS 100
[2016-04-22 04:59] LABS: POLYCHROMASIA 1+ (2-5/OIF) (0-1/OIF)
[2016-04-23 04:39] LABS: HEMOGLOBIN 8.4 g/dL (13.6-17.8); MEAN CORPUS HGB CONC 32.3 g/dL (32.0-36.0); MEAN CORPUSCULAR HEMOGLOB 29.2 pg (26.0-34.0); MEAN CORPUSCULAR VOLUME 90.3 fL (80-100); MEAN PLATELET VOLUME 10.7 fL (9.2-13.0); NUCLEATED RED BLOOD CELLS 0.4 /100WBC (0-0); PLATELET COUNT 275 10/3/uL (150-400); RBC DISTRIBUTION WIDTH 15.9 % (12.0-16.0); RED CELL COUNT 2.88 10/6/uL (4.7-6.1)
[2016-04-23 04:40] LABS: MANUAL DIFF YES %; WHITE BLOOD CELLS 28.9 10/3/uL (4.5-10.5)
[2016-04-23 04:46] LABS: A/G RATIO 0.6 (0.7-1.9); ALBUMIN 2.1 G/DL (3.5-5.0); BUN (BLOOD UREA NITROGEN) 53 MG/DL (6-23); CALCIUM, SERUM 8.9 MG/DL (8.5-10.4); CHLORIDE, SERUM 99 MMOL/L (96-112); CO2 (CARBON DIOXIDE) 28 MMOL/L (24-34); CREATININE 2.03 MG/DL (0.70-1.30); DIRECT BILIRUBIN 0.1 MG/DL (0.0-0.4); GFR AFRICAN AMERICAN 38 ML/MIN (>=60); GFR NON AFRICAN AMERICAN 33 ML/MIN (>=60); GLOBULIN 3.8 G/DL (2.5-4.1); GLUCOSE, SERUM 209 MG/DL (60-99); INDIRECT BILIRUBIN(NOT ORDER) 0.4 MG/DL (0.1-0.9); POTASSIUM, SERUM 3.9 MMOL/L (3.5-5.3); SGOT(AST) 24 U/L (5-40); SGPT(ALT) 74 U/L (5-65); SODIUM, SERUM 135 MMOL/L (135-148); TOTAL BILIRUBIN 0.5 MG/DL (0-1.2); TOTAL PROTEIN 5.9 G/DL (6.0-8.5)
[2016-04-23 04:49] LABS: ALKALINE PHOSPHATASE 125 U/L (45-117)
[2016-04-23 04:59] LABS: BAND NEUTROPHILS 15 %; IMMATURE GRANS ABSOLUTE (CALC) 0.87 10/3/uL (0.0-0.11); LYMPHOCYTES 1 %; LYMPHOCYTES ABSOLUTE (CALC) 0.29 10/3/uL (0.67-4.30); METAMYELOCYTES 3 %; MONOCYTES 2 %; MONOCYTES ABSOLUTE (CALC) 0.58 10/3/uL (0.21-1.20); NEUTROPHILS ABSOLUTE (CALC) 27.17 10/3/uL (2.02-8.40); PLATELET ESTIMATE ADQ (ADEQUATE); RBC MORPHOLOGY NORM (NORMAL); SEGMENTED NEUTROPHIL (0) 79 %; TOTAL NUCLEATED CELLS 100
[2016-04-23 07:16] LABS: PROCALCITONIN 1.49 ng/mL (<0.5)
[2016-04-24 03:54] LABS: HEMATOCRIT 25.1 % (40.0-51.0); HEMOGLOBIN 8.3 g/dL (13.6-17.8); MANUAL DIFF YES %; MEAN CORPUS HGB CONC 33.1 g/dL (32.0-36.0); MEAN CORPUSCULAR HEMOGLOB 29.4 pg (26.0-34.0); MEAN PLATELET VOLUME 11.1 fL (9.2-13.0); PLATELET COUNT 367 10/3/uL (150-400); RBC DISTRIBUTION WIDTH 16.1 % (12.0-16.0); RED CELL COUNT 2.82 10/6/uL (4.7-6.1); WHITE BLOOD CELLS 25.7 10/3/uL (4.5-10.5)
[2016-04-24 04:11] LABS: BUN (BLOOD UREA NITROGEN) 51 MG/DL (6-23); CALCIUM, SERUM 8.8 MG/DL (8.5-10.4); CHLORIDE, SERUM 100 MMOL/L (96-112); CO2 (CARBON DIOXIDE) 26 MMOL/L (24-34); CREATININE 1.81 MG/DL (0.70-1.30); GFR AFRICAN AMERICAN 44 ML/MIN (>=60); GFR NON AFRICAN AMERICAN 38 ML/MIN (>=60); SODIUM, SERUM 134 MMOL/L (135-148)
[2016-04-24 04:17] LABS: GLUCOSE, SERUM 142 MG/DL (60-99); POTASSIUM, SERUM 4.8 MMOL/L (3.5-5.3)
[2016-04-24 04:31] LABS: BAND NEUTROPHILS 4 %; GIANT PLATELET OCC; IMMATURE GRANS ABSOLUTE (CALC) 1.54 10/3/uL (0.0-0.11); LYMPHOCYTES 4 %; LYMPHOCYTES ABSOLUTE (CALC) 1.03 10/3/uL (0.67-4.30); METAMYELOCYTES 4 %; MONOCYTES 1 %; MONOCYTES ABSOLUTE (CALC) 0.26 10/3/uL (0.21-1.20); MYELOCYTES 2 %; NEUTROPHILS ABSOLUTE (CALC) 22.87 10/3/uL (2.02-8.40); NUCLEATED RED BLOOD CELLS 2 /100WBC (0); PLATELET ESTIMATE ADQ (ADEQUATE); SEGMENTED NEUTROPHIL (0) 85 %; TOTAL NUCLEATED CELLS 100
[2016-04-24 04:33] LABS: RBC MORPHOLOGY NORM (NORMAL)
[2016-04-24 05:36] LABS: PROCALCITONIN 0.97 ng/mL (<0.5)
[2016-04-25 05:10] LABS: HEMATOCRIT 24.7 % (40.0-51.0); HEMOGLOBIN 7.7 g/dL (13.6-17.8); MEAN CORPUSCULAR HEMOGLOB 27.8 pg (26.0-34.0); MEAN CORPUSCULAR VOLUME 89.2 fL (80-100); MEAN PLATELET VOLUME 10.5 fL (9.2-13.0); RBC DISTRIBUTION WIDTH 15.8 % (12.0-16.0); RED CELL COUNT 2.77 10/6/uL (4.7-6.1); WHITE BLOOD CELLS 17.5 10/3/uL (4.5-10.5)
[2016-04-25 05:17] LABS: MANUAL DIFF YES %; MEAN CORPUS HGB CONC 31.2 g/dL (32.0-36.0); PLATELET COUNT 247 10/3/uL (150-400)
[2016-04-25 05:37] LABS: BUN (BLOOD UREA NITROGEN) 53 MG/DL (6-23); CALCIUM, SERUM 8.9 MG/DL (8.5-10.4); CHLORIDE, SERUM 102 MMOL/L (96-112); CO2 (CARBON DIOXIDE) 25 MMOL/L (24-34); GFR AFRICAN AMERICAN 41 ML/MIN (>=60); GFR NON AFRICAN AMERICAN 36 ML/MIN (>=60); POTASSIUM, SERUM 4.3 MMOL/L (3.5-5.3); SODIUM, SERUM 136 MMOL/L (135-148)
[2016-04-25 05:38] LABS: GLUCOSE, SERUM 173 MG/DL (60-99)
[2016-04-25 07:24] LABS: BAND NEUTROPHILS 7 %; IMMATURE GRANS ABSOLUTE (CALC) 1.58 10/3/uL (0.0-0.11); LYMPHOCYTES 4 %; METAMYELOCYTES 3 %; MONOCYTES 6 %; MONOCYTES ABSOLUTE (CALC) 1.05 10/3/uL (0.21-1.20); MYELOCYTES 6 %; NEUTROPHILS ABSOLUTE (CALC) 14.18 10/3/uL (2.02-8.40); PLATELET ESTIMATE ADQ (ADEQUATE); SEGMENTED NEUTROPHIL (0) 74 %; TOTAL NUCLEATED CELLS 100
[2016-04-25 07:25] LABS: ANISOCYTOSIS 1+ (5-10/OIF) (0-5/OIF); POLYCHROMASIA 1+ (2-5/OIF) (0-1/OIF)
[2016-04-25 19:30] LABS: ADENOVIRUS B/E Not Detected (NOTDET); ADENOVIRUS C Not Detected (NOTDET); HUMAN METAPNEUMONVIRUS Not Detected (NOTDET); HUMAN RHINOVIRUS Not Detected (NOTDET); INFLUENZA A Not Detected (NOTDET); INFLUENZA A 2009 H1N1 Not Detected (NOTDET); INFLUENZA A H1 Not Detected (NOTDET); INFLUENZA A H3 Not Detected (NOTDET); INFLUENZA B DETECTED (NOTDET); PANEL INTERPRETATION Positive (NEG); PARAINFLUENZA VIRUS 1 Not Detected (NOTDET); PARAINFLUENZA VIRUS 2 Not Detected (NOTDET); PARAINFLUENZA VIRUS 3 Not Detected (NOTDET); RESPIRATORY SYNCYTIAL VIRUS A Not Detected (NOTDET); RESPIRATORY SYNCYTIAL VIRUS B Not Detected (NOTDET)
[2016-04-26 05:48] LABS: HEMATOCRIT 25.1 % (40.0-51.0); HEMOGLOBIN 7.8 g/dL (13.6-17.8); MEAN CORPUS HGB CONC 31.1 g/dL (32.0-36.0); MEAN CORPUSCULAR HEMOGLOB 28.5 pg (26.0-34.0); MEAN CORPUSCULAR VOLUME 91.6 fL (80-100); MEAN PLATELET VOLUME 9.8 fL (9.2-13.0); PLATELET COUNT 240 10/3/uL (150-400); RBC DISTRIBUTION WIDTH 15.8 % (12.0-16.0); RED CELL COUNT 2.74 10/6/uL (4.7-6.1); WHITE BLOOD CELLS 17.7 10/3/uL (4.5-10.5)
[2016-04-26 05:55] LABS: MANUAL DIFF YES %
[2016-04-26 07:50] LABS: BAND NEUTROPHILS 9 %; HYPOCHROMIA 1+ (3-10/OIF) (0-2/OIF); IMMATURE GRANS ABSOLUTE (CALC) 1.24 10/3/uL (0.0-0.11); LYMPHOCYTES 5 %; LYMPHOCYTES ABSOLUTE (CALC) 0.89 10/3/uL (0.67-4.30); MACROCYTES 1+ (5-10/OIF) (0-5/OIF); METAMYELOCYTES 5 %; MONOCYTES 10 %; MONOCYTES ABSOLUTE (CALC) 1.77 10/3/uL (0.21-1.20); MYELOCYTES 2 %; NEUTROPHILS ABSOLUTE (CALC) 13.81 10/3/uL (2.02-8.40); PLATELET ESTIMATE ADQ (ADEQUATE); POLYCHROMASIA 1+ (2-5/OIF) (0-1/OIF); SEGMENTED NEUTROPHIL (0) 69 %; TOTAL NUCLEATED CELLS 100
[2016-04-26] MEDS ORDERED: CIP5 PO (12:51)
[2016-04-26 17:53] LABS: ADENOVIRUS B/E Not Detected (NOTDET); ADENOVIRUS C Not Detected (NOTDET); HUMAN METAPNEUMONVIRUS Not Detected (NOTDET); HUMAN RHINOVIRUS Not Detected (NOTDET); INFLUENZA A Not Detected (NOTDET); INFLUENZA A 2009 H1N1 Not Detected (NOTDET); INFLUENZA A H1 Not Detected (NOTDET); INFLUENZA A H3 Not Detected (NOTDET); INFLUENZA B DETECTED (NOTDET); PANEL INTERPRETATION Positive (NEG); PANEL SOURCE Nasal (()); PARAINFLUENZA VIRUS 1 Not Detected (NOTDET); PARAINFLUENZA VIRUS 2 Not Detected (NOTDET); PARAINFLUENZA VIRUS 3 Not Detected (NOTDET); RESPIRATORY SYNCYTIAL VIRUS A Not Detected (NOTDET); RESPIRATORY SYNCYTIAL VIRUS B Not Detected (NOTDET)
== END 2016-04-26 14:58 | disposition home or self-care (01) | DRG 166 ==
LOC: ER 11:58 → 4SO 14:31 → MIC 04-13 17:44 → 7NO 04-14 17:34 → 4EA 04-23 16:01
PROVIDERS: Emergency Medicine; Hospitalist; Internal Medicine; Internal Medicine Hematology & Oncology; Internal Medicine Infectious Disease; Internal Medicine Nephrology; Internal Medicine Pulmonary Disease; Nurse Practitioner; Registered Nurse
PROC: 0BBD8ZX Excision of Right Middle Lung Lobe, Via Natural or Artificial Opening Endoscopic, Diagnostic (ICD-10-PCS; 2016-04-19)
PROC: 0B948ZX Drainage of Right Upper Lobe Bronchus, Via Natural or Artificial Opening Endoscopic, Diagnostic (ICD-10-PCS; 2016-04-19)
PROC: 0B958ZX Drainage of Right Middle Lobe Bronchus, Via Natural or Artificial Opening Endoscopic, Diagnostic (ICD-10-PCS; 2016-04-19)
PROC: 0BB68ZX Excision of Right Lower Lobe Bronchus, Via Natural or Artificial Opening Endoscopic, Diagnostic (ICD-10-PCS; 2016-04-19)
PROC: 0B968ZX Drainage of Right Lower Lobe Bronchus, Via Natural or Artificial Opening Endoscopic, Diagnostic (ICD-10-PCS; principal; 2016-04-19 09:00)
DX: J96.21 Acute and chronic respiratory failure with hypoxia (principal); J11.08 Influenza due to unidentified influenza virus with specified pneumonia; N17.9 Acute kidney failure, unspecified; J15.1 Pneumonia due to Pseudomonas; D89.812 Acute on chronic graft-versus-host disease; N18.4 Chronic kidney disease, stage 4 (severe); I48.0 Paroxysmal atrial fibrillation; Z94.81 Bone marrow transplant status; D46.9 Myelodysplastic syndrome, unspecified; E87.5 Hyperkalemia; J02.0 Streptococcal pharyngitis; I12.9 Hypertensive chronic kidney disease with stage 1 through stage 4 chronic kidney disease, or unspecified chronic kidney disease; E03.9 Hypothyroidism, unspecified; Z86.718 Personal history of other venous thrombosis and embolism; Z79.01 Long term (current) use of anticoagulants
CPT/HCPCS: 36600; 71010; 71250; 74000; 80048; 80053; 80069; 81001; 82248; 82805; 82962; 83735; 83880; 84100; 84145; 84300; 84443; 84484; 85025; 85610; 85652; 85730; 86140; 87015; 87040; 87045; 87046; 87046-59; 87070; 87077; 87101; 87102; 87107; 87116; 87186; 87205; 87328; 87329; 87449; 87493; 87493-59; 87633; 87641; 87804; 87880; 87899; 87899-59; 88112; 88305; 89051; 93005; 94640; 97110-GP; 97162-GP; 99285; A9270-GY; C8929; J0360; J0610; J0692; J0744; J2250; J2405; J2920; J2930; J3010; Q9957